=== PATIENT | female | born 1975 | race Caucasian/White ===

== ENCOUNTER 2017-04-09 01:18 | Emergency (ER) | payer MEDICAID ==
[~2017-04-09] VITALS: Ht 177.8 cm; Wt 83.5 kg
[2017-04-09] MEDS ORDERED: ALPR0.5T PO (01:45)
[2017-04-09] MEDS ORDERED: [UNRECOGNIZED DRUG - CODE] PO (01:47)
[2017-04-09] MEDS ORDERED: DIVA250T4 PO (01:48)
[2017-04-09] MEDS ORDERED: [UNRECOGNIZED DRUG - CODE] PO (01:49)
[2017-04-09] MEDS ORDERED: SODIUM CHLORIDE 0.9% 1,000ML IVBOLUS ONE (02:00)
[2017-04-09] MEDS ORDERED: SODIUM CHLORIDE FLUSH 10ML SYR IVF ONE (02:00)
[2017-04-09 02:04] LABS: MEAN CORPUSCULAR HEMOGLOBIN 29.3 pg (27.0-34.8); MEAN CORPUSCULAR VOLUME 86.1 fL (80-100); MEAN PLATELET VOLUME 9.3 fL (7.4-10.4); PLATELET COUNT 264 x10^3/uL (130-400); RED BLOOD COUNT 4.46 x10^6/uL (3.82-5.3); RED CELL DISTRIBUTION WIDTH 13.1 % (9.6-15.2)
[2017-04-09 02:14] LABS: ANION GAP 7 mmol/L (5-15); CHLORIDE 102 mmol/L (98-107); CREATININE 0.71 mg/dL (0.55-1.02)
[2017-04-09 02:32] LABS: MD YES
[2017-04-09 02:34] LABS: <PLATELET ESTIMATE> ADEQUATE; <PLT MORPHOLOGY> NORMAL PLT MORPH; ANISOCYTOSIS 1+; EOS#(MANUAL) 0.16 x10^3/uL (0.0-0.4); EOS% (MANUAL) 1 % (1-7); LYMPH#(MANUAL) 2.83 x10^3/uL (1-3.4); LYMPHS% (MANUAL) 18 % (22-44); MONOS#(MANUAL) 0.94 x10^3/uL (0.3-2.7); MONOS% (MANUAL) 6 % (2-9); POLYCHROMASIA 1+; SEG#(MANUAL) 11.78 x10^3/uL (1.8-6.8); SEGS% (MANUAL) 75 % (42-75)
[2017-04-09 03:27] LABS: HCG UR SG 1.007 (1.003-1.030)
[2017-04-09 03:28] LABS: CULTURE INDICATED? YES; MICROSCOPIC INDICATED
[2017-04-09 04:44] VITALS: BP 94/58
== END 2017-04-09 04:51 | disposition home or self-care (01) ==
LOC: ED 04:45
DX: R55 Syncope and collapse (principal); B34.9 Viral infection, unspecified; F41.1 Generalized anxiety disorder; F32.9 Major depressive disorder, single episode, unspecified; G43.909 Migraine, unspecified, not intractable, without status migrainosus; Z87.891 Personal history of nicotine dependence; Z98.890 Other specified postprocedural states; Z88.8 Allergy status to other drugs, medicaments and biological substances
CPT/HCPCS: 36415; 80048; 81001; 81025; 82040; 85025; 87081; 87086; 87880; 93005; 96360; 96361; 99285; J7030

== ENCOUNTER → 2017-10-24 | Outpatient (CLI) | payer MEDICAID ==
[~2017-10-24] MED LIST: ALPR0.5T PO; DIVA250T4 PO; [UNRECOGNIZED DRUG - CODE] PO; [UNRECOGNIZED DRUG - CODE] PO
== END | disposition home or self-care (01) ==
LOC: CARD 12:41
PROVIDERS: ATTEND Registered Nurse
DX: G43.711 Chronic migraine without aura, intractable, with status migrainosus (principal); R94.01 Abnormal electroencephalogram [EEG]
CPT/HCPCS: 95816; 95819

== ENCOUNTER 2017-11-07 15:33 | Observation (INO) | payer MEDICAID ==
[~2017-11-07] VITALS: Ht 177.8 cm; Wt 86.6 kg
[~2017-11-07 15:33] MED LIST changes: +TIZA100P2 PO; -[UNRECOGNIZED DRUG - CODE] PO
[2017-11-07 16:44] LABS: BASOPHILS # (AUTO) 0.05 x10^3/uL (0-0.1); BASOPHILS % (AUTO) 1 % (0-1); EOSINOPHILS # (AUTO) 0.22 x10^3/uL (0-0.4); EOSINOPHILS % (AUTO) 3 % (1-7); LYMPHOCYTES # (AUTO) 2.26 x10^3/uL (1-3.4); LYMPHOCYTES % (AUTO) 26 % (22-44); MD NO; MEAN CORPUSCULAR HEMOGLOBIN 30.2 pg (27.0-34.8); MEAN CORPUSCULAR HGB CONC 34.6 g/dL (32.4-35.8); MEAN CORPUSCULAR VOLUME 87.1 fL (80-100); MONOCYTES # (AUTO) 0.65 x10^3/uL (0.2-0.8); MONOCYTES % (AUTO) 8 % (2-9); NEUTROPHILS # (AUTO) 5.45 x10^3/uL (1.8-6.8); NEUTROPHILS % (AUTO) 63 % (42-75); PLATELET COUNT 276 x10^3/uL (130-400); RED BLOOD COUNT 5.37 x10^6/uL (3.82-5.3); RED CELL DISTRIBUTION WIDTH 13.4 % (9.6-15.2)
[2017-11-07 16:45] LABS: MICROSCOPIC AUTO
[2017-11-07 16:48] LABS: CULTURE INDICATED? YES
[2017-11-07 16:53] LABS: ALBUMIN 3.7 g/dL (3.4-5.0); ANION GAP 9 mmol/L (5-15); CALCIUM 8.8 mg/dL (8.5-10.1); CHLORIDE 105 mmol/L (98-107); SALICYLATE LEVEL 2.2 mg/dL (2.8-20.0)
[2017-11-07 16:55] LABS: CREATININE 0.78 mg/dL (0.55-1.02)
[2017-11-07 16:56] LABS: ALANINE AMINOTRANSFERASE 29 U/L (12-78); ALKALINE PHOSPHATASE 62 U/L (45-117); BILIRUBIN,TOTAL 0.3 mg/dL (0.2-1.0); TOTAL PROTEIN 7.9 g/dL (6.4-8.2)
[2017-11-07 16:59] LABS: AMPHETAMINE SCREEN, URINE Negative (Negative); BARBITURATE SCREEN, URINE Negative (Negative); BENZODIAZEPINE SCREEN, URINE Positive (Negative); CANNABINOID SCREEN, URINE Negative (Negative); COCAINE SCREEN, URINE Negative (Negative); METHADONE SCREEN, URINE Negative (Negative); OPIATE SCREEN, URINE Negative (Negative)
[2017-11-07 17:14] LABS: ACETAMINOPHEN < 2 mcg/mL (10-30)
[2017-11-07] MEDS ORDERED: DULO20CA45 PO ×2 (19:06→19:11)
[2017-11-07] MEDS ORDERED: DIVA500T2 PO (19:11)
[2017-11-07] MEDS ORDERED: ALPR0.25 PO (19:11)
[2017-11-07] MEDS ORDERED: PROP20TA PO (19:11)
[2017-11-07] MEDS ORDERED: TIZA4TAB PO ×2 (19:11)
[2017-11-07] MEDS ORDERED: ALPR1TAB2 PO (19:11)
[2017-11-07] MEDS ORDERED: NICOTINE 7 MG/24 HR PATCH.TD24 TD SCH (20:30)
[2017-11-07] MEDS ORDERED: ACETAMINOPHEN 325 MG TABLET PO PRN (20:30)
[2017-11-07] MEDS ORDERED: BISACODYL 10 MG SUPP PR PRN (20:30)
[2017-11-07] MEDS ORDERED: ONDANSETRON ODT 4 MG PO PRN (20:30)
[2017-11-07] MEDS ORDERED: POLYETHYLENE GLYCOL 17 GM PACKET PO PRN (20:30)
[2017-11-07] MEDS ORDERED: ALPRazolam 1MG TABLET PO SCH (21:00)
[2017-11-07] MEDS ORDERED: TIZANIDINE 4MG TABLET PO SCH (21:00)
[2017-11-07] MEDS ORDERED: DIVALPROEX 500 MG TAB.ER.24H PO SCH (21:22)
[2017-11-07 21:24] VITALS: BP 118/78
[2017-11-07] MEDS: PROPRANOLOL 20 MG TABLET PO SCH (22:18)
[2017-11-07] MEDS: DULOXETINE 20 MG CAPSULE.DR PO SCH (22:19)
[2017-11-08 07:17] VITALS: BP 101/72
[2017-11-08] MEDS: PROPRANOLOL 20 MG TABLET PO SCH (08:09)
[2017-11-08] MEDS: DULOXETINE 20 MG CAPSULE.DR PO SCH (08:12)
[2017-11-08] MEDS ORDERED: TIZANIDINE 4MG TABLET PO SCH (09:00)
[2017-11-08] MEDS ORDERED: SENNA/DOCUSATE TABLET PO SCH (09:00)
== END 2017-11-08 09:32 ==
LOC: ED 16:45 → EDIP 20:07 → INTOOBSV 20:07 → 2N 21:01
PROVIDERS: ADMIT Internal Medicine; ATTEND Internal Medicine
DX: R45.851 Suicidal ideations (principal); F32.9 Major depressive disorder, single episode, unspecified; F06.4 Anxiety disorder due to known physiological condition; F17.200 Nicotine dependence, unspecified, uncomplicated; F41.1 Generalized anxiety disorder; G40.909 Epilepsy, unspecified, not intractable, without status epilepticus; G43.909 Migraine, unspecified, not intractable, without status migrainosus; Z81.8 Family history of other mental and behavioral disorders; I67.1 Cerebral aneurysm, nonruptured
CPT/HCPCS: 36415; 80053; 80164; 80307; 80329; 81001; 84703; 85025; 87086; 93005; 99285; G0378; G0480

== ENCOUNTER 2017-12-14 09:41 | Emergency (ER) | payer MEDICAID ==
[~2017-12-14] VITALS: Ht 177.8 cm; Wt 85.9 kg
[~2017-12-14 09:41] MED LIST changes: +ALPR0.25 PO; +ALPR1TAB2 PO; +DIVA500T2 PO; +DULO20CA45 PO; +PROP20TA PO; +TIZA4TAB PO
[2017-12-14] MEDS ORDERED: MORPHINE SULFATE 4 MG/ML, 1ML IVPush PRN (10:30)
[2017-12-14] MEDS ORDERED: KETO10TA PO (10:40)
[2017-12-14] MEDS ORDERED: MORPHINE SULFATE 4 MG/ML, 1ML ONE (11:01)
[2017-12-14 11:11] LABS: BASOPHILS # (AUTO) 0.07 x10^3/uL (0-0.1); BASOPHILS % (AUTO) 1 % (0-1); EOSINOPHILS # (AUTO) 0.22 x10^3/uL (0-0.4); EOSINOPHILS % (AUTO) 3 % (1-7); LYMPHOCYTES # (AUTO) 2.54 x10^3/uL (1-3.4); LYMPHOCYTES % (AUTO) 34 % (22-44); MD NO; MEAN CORPUSCULAR HEMOGLOBIN 30.1 pg (27.0-34.8); MEAN CORPUSCULAR HGB CONC 34.4 g/dL (32.4-35.8); MEAN CORPUSCULAR VOLUME 87.6 fL (80-100); MEAN PLATELET VOLUME 9.3 fL (7.4-10.4); MONOCYTES # (AUTO) 0.83 x10^3/uL (0.2-0.8); MONOCYTES % (AUTO) 11 % (2-9); NEUTROPHILS % (AUTO) 51 % (42-75); PLATELET COUNT 245 x10^3/uL (130-400)
[2017-12-14 11:21] LABS: INTERNATIONAL NORMALIZED RATIO 1.03 (0.93-1.1); PROTHROMBIN TIME 10.7 Seconds (9.6-11.5)
[2017-12-14 11:22] LABS: ALANINE AMINOTRANSFERASE 19 U/L (12-78); ALBUMIN 3.3 g/dL (3.4-5.0); ANION GAP 5 mmol/L (5-15); CALCIUM 8.6 mg/dL (8.5-10.1); CHLORIDE 106 mmol/L (98-107); CREATININE 0.73 mg/dL (0.55-1.02)
[2017-12-14 11:25] LABS: CULTURE INDICATED? YES; MICROSCOPIC INDICATED
[2017-12-14 11:27] LABS: ALKALINE PHOSPHATASE 46 U/L (45-117); BILIRUBIN,TOTAL 0.3 mg/dL (0.2-1.0); TOTAL PROTEIN 6.8 g/dL (6.4-8.2)
[2017-12-14] MEDS ORDERED: SODIUM CHLORIDE FLUSH 10ML SYR IVF ONE (11:30)
[2017-12-14] MEDS ORDERED: OMNIPAQUE 350 MG/ML, 100ML BOTTLE ONE (12:17)
[2017-12-14 13:33] VITALS: BP 96/52
== END 2017-12-14 13:37 | disposition home or self-care (01) ==
LOC: ED 13:31
DX: R10.11 Right upper quadrant pain (principal); G43.909 Migraine, unspecified, not intractable, without status migrainosus; R10.31 Right lower quadrant pain
CPT/HCPCS: 36415; 74177; 80053; 81001; 83690; 84703; 85025; 85610; 85730; 87086; 96374; 99285; Q9967

== ENCOUNTER 2018-10-05 21:08 | Emergency (ER) | payer MEDICAID ==
[~2018-10-05] VITALS: Ht 180.3 cm; Wt 112.4 kg
[~2018-10-05 21:08] MED LIST changes: +KETO10TA PO
[2018-10-05 21:10] VITALS: BP 129/81
[2018-10-05] MEDS ORDERED: DEXAMETHASONE 4 MG TABLET ONE (21:43)
[2018-10-05] MEDS ORDERED: FAMOTIDINE 20 MG TABLET ONE (21:43)
[2018-10-05] MEDS ORDERED: DEXAMETHASONE 4 MG TABLET PO ONE (22:00)
[2018-10-05] MEDS ORDERED: FAMOTIDINE 20 MG TABLET PO ONE (22:00)
== END 2018-10-05 22:02 | disposition home or self-care (01) ==
LOC: ED 21:56
DX: L50.9 Urticaria, unspecified (principal)
CPT/HCPCS: 99283

== ENCOUNTER 2018-10-11 18:29 | Emergency (ER) | payer MEDICAID ==
[~2018-10-11] VITALS: Ht 180.3 cm; Wt 110.0 kg
--- NOTE | 2018-10-11 18:59 | NUR ---
PT TO ROOM AT THIS TIME.
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
[2018-10-11 19:21] LABS: MEAN CORPUSCULAR HEMOGLOBIN 29.3 pg (27.0-34.8); MEAN CORPUSCULAR HGB CONC 33.4 g/dL (32.4-35.8); MEAN CORPUSCULAR VOLUME 87.8 fL (80-100); MEAN PLATELET VOLUME 9.4 fL (7.4-10.4); PLATELET COUNT 270 x10^3/uL (130-400); RED BLOOD COUNT 5.08 x10^6/uL (3.82-5.3); RED CELL DISTRIBUTION WIDTH 14.3 % (9.6-15.2)
[2018-10-11 19:30] LABS: ALBUMIN 3.3 g/dL (3.4-5.0); ANION GAP 9 mmol/L (5-15); CALCIUM 8.6 mg/dL (8.5-10.1); CHLORIDE 103 mmol/L (98-107); CREATININE 1.01 mg/dL (0.55-1.02)
[2018-10-11 20:00] LABS: BASOPHILS # (AUTO) 0.02 x10^3/uL (0-0.1); BASOPHILS % (AUTO) 0 % (0-1); EOSINOPHILS # (AUTO) 0.19 x10^3/uL (0-0.4); EOSINOPHILS % (AUTO) 2 % (1-7); LYMPHOCYTES % (AUTO) 7 % (22-44); MD SCAN; MONOCYTES # (AUTO) 0.68 x10^3/uL (0.2-0.8); MONOCYTES % (AUTO) 6 % (2-9); NEUTROPHILS # (AUTO) 9.96 x10^3/uL (1.8-6.8); NEUTROPHILS % (AUTO) 86 % (42-75)
[2018-10-11] MEDS ORDERED: ONDANSETRON ODT 4 MG ONE (20:24)
--- NOTE | 2018-10-11 20:25 | NUR ---
PT MEDICATED PAER EMAR. PT TOLERATED WELL.
[2018-10-11 20:26] VITALS: BP 178/107
[2018-10-11] MEDS ORDERED: ONDANSETRON ODT 4 MG PO ONE (20:30)
--- NOTE | 2018-10-11 20:34 | NUR ---
PT PROVIDED FLUIDS.
--- NOTE | 2018-10-11 21:09 | NUR ---
PT GIVEN DC INSTRUCTIONS AND SCRIPT. PT EDUCATED REGARDING DC MEDICATION, PT'S AOX4. RESPS EVEN AND UNLABORED. NO ACUTE DISTRESS AT DC. PT AMB TO DC WITH STEADY GAIT.
== END 2018-10-11 21:10 | disposition home or self-care (01) ==
LOC: ED 20:59
DX: R42 Dizziness and giddiness (principal); R11.2 Nausea with vomiting, unspecified; F17.200 Nicotine dependence, unspecified, uncomplicated
CPT/HCPCS: 36415; 80048; 82040; 85025; 93005; 99284; Q0162

== ENCOUNTER 2019-09-05 08:19 | Emergency (ER) | payer MEDICAID ==
[~2019-09-05] VITALS: Ht 180.3 cm; Wt 108.7 kg
[~2019-09-05 08:19] MED LIST changes: -TIZA4TAB PO; +TIZA4TAB2 PO; +[UNRECOGNIZED DRUG - CODE] PO; -[UNRECOGNIZED DRUG - CODE] PO
--- NOTE | 2019-09-05 08:28 | NUR ---
PT AMBULATED TO ROOM WITH A STEADY GAIT.
--- NOTE | 2019-09-05 08:32 | NUR ---
PT PRESENTED TO ED WITH COMPLAINTS OF CHEST PAIN AND SOB. 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 PT STATES CP OCCURS AT NIGHT TIME WHILE LYING DOWN AND "USUALLY GOES AWAY WHEN I WAKE UP BUT TODAY IT DIDNT GO AWAY." ERMD AT BEDSIDE EVALUATING PT.
[2019-09-05] MEDS ORDERED: GABA600T7 PO (08:38)
[2019-09-05] MEDS ORDERED: TIZA4TAB2 PO (08:38)
[2019-09-05] MEDS ORDERED: LORA-445 PO (08:38)
[2019-09-05] MEDS ORDERED: DULO60CA7 PO (08:38)
[2019-09-05] MEDS ORDERED: DIVA250T4 PO (08:38)
[2019-09-05 09:02] LABS: BASOPHILS # (AUTO) 0.09 x10^3/uL (0-0.1); BASOPHILS % (AUTO) 1 % (0-1); EOSINOPHILS # (AUTO) 0.18 x10^3/uL (0-0.4); EOSINOPHILS % (AUTO) 3 % (1-7); LYMPHOCYTES % (AUTO) 30 % (22-44); MD NO; MEAN CORPUSCULAR HEMOGLOBIN 29.7 pg (27.0-34.8); MEAN CORPUSCULAR HGB CONC 33.2 g/dL (32.4-35.8); MEAN CORPUSCULAR VOLUME 89.4 fL (80-100); MEAN PLATELET VOLUME 9.4 fL (7.4-10.4); MONOCYTES % (AUTO) 11 % (2-9); NEUTROPHILS # (AUTO) 3.95 x10^3/uL (1.8-6.8); NEUTROPHILS % (AUTO) 56 % (42-75); PLATELET COUNT 287 x10^3/uL (130-400); RED BLOOD COUNT 4.81 x10^6/uL (3.82-5.3); RED CELL DISTRIBUTION WIDTH 13.6 % (9.6-15.2)
[2019-09-05 09:13] LABS: ALBUMIN 3.5 g/dL (3.4-5.0); ANION GAP 9 mmol/L (5-15); CALCIUM 8.7 mg/dL (8.5-10.1); CHLORIDE 107 mmol/L (98-107); CREATININE 0.88 mg/dL (0.55-1.02)
--- NOTE | 2019-09-05 09:15 | NUR ---
PT RESTING COMFORTABLY ON GURNEY ON PHONE. AWATING RESULTS FROM LAB WORK. VSS.
[2019-09-05 09:16] LABS: TROPONIN I < 0.015 ng/mL (0.000-0.045)
[2019-09-05 10:17] VITALS: BP 112/69
--- NOTE | 2019-09-05 10:17 | NUR ---
PT DC IN A STABLE CONDITION. DC INSTRUCTIONS WERE DISCUSSED WITH PT. PT VERBALIZED UNDERSTANDING. NO FURTHER QUESTIONS OR CONCERNS WERE EXPRESSED AT THAT TIME. PT AMBULATED TO DC DESK WITH RN WITH A STEADY GAIT.
== END 2019-09-05 10:19 | disposition home or self-care (01) ==
LOC: ED 09:28
DX: R07.89 Other chest pain (principal); R06.02 Shortness of breath; R94.31 Abnormal electrocardiogram [ECG] [EKG]; K21.9 Gastro-esophageal reflux disease without esophagitis; J45.909 Unspecified asthma, uncomplicated; Z87.891 Personal history of nicotine dependence
CPT/HCPCS: 36415; 71046; 80048; 82040; 84484; 85025; 93005; 99285

== ENCOUNTER 2020-03-20 16:54 | Emergency (ER) | payer MEDICAID ==
[~2020-03-20] VITALS: Ht 180.3 cm; Wt 108.1 kg
[~2020-03-20 16:54] MED LIST changes: +DULO60CA7 PO; +GABA600T7 PO; +LORA-445 PO
[2020-03-20 17:07] VITALS: BP 127/87
[2020-03-20 17:45] LABS: BASOPHILS % (AUTO) 1 % (0-1); EOSINOPHILS % (AUTO) 2 % (1-7); LYMPHOCYTES % (AUTO) 22 % (22-44); MEAN CORPUSCULAR HEMOGLOBIN 29.8 pg (27.0-34.8); MEAN CORPUSCULAR HGB CONC 33.7 g/dL (32.4-35.8); MONOCYTES % (AUTO) 9 % (2-9); NEUTROPHILS % (AUTO) 66 % (42-75); PLATELET COUNT 354 x10^3/uL (130-400); RED BLOOD COUNT 5.14 x10^6/uL (3.82-5.3); RED CELL DISTRIBUTION WIDTH 13.8 % (9.6-15.2)
[2020-03-20 17:57] LABS: ALBUMIN 3.8 g/dL (3.4-5.0); ANION GAP 7 mmol/L (5-15); CALCIUM 8.9 mg/dL (8.5-10.1); CHLORIDE 105 mmol/L (98-107)
[2020-03-20 18:02] LABS: ALANINE AMINOTRANSFERASE 35 U/L (12-78); ALKALINE PHOSPHATASE 83 U/L (45-117); BILIRUBIN,TOTAL 0.5 mg/dL (0.2-1.0); CREATININE 0.83 mg/dL (0.55-1.02); TOTAL PROTEIN 8.4 g/dL (6.4-8.2)
[2020-03-20 18:05] LABS: MD NO
== END 2020-03-20 18:47 | disposition left against medical advice (07) ==
LOC: ED 18:40
DX: N93.9 Abnormal uterine and vaginal bleeding, unspecified (principal); Z53.21 Procedure and treatment not carried out due to patient leaving prior to being seen by health care provider
CPT/HCPCS: 36415; 80053; 84702; 85025